=== PATIENT | female | born 1990 | race Caucasian/White ===

== ENCOUNTER 2018-03-31 21:59 | Inpatient (IN) ==
[~2018-03-31 21:59] MED LIST: Diphtheria/Tetanus/Pertussis Vaccine Inj 0.5 ML Syringe IM ONE; Measles/Mumps/Rubella Vaccine Inj 0.5 ML Vial SQ ONE
--- NOTE | 2018-03-31 22:23 | P.PN ---
Subjective Interval history: Patient presented to the [facility] at C/C/0 with SROM and was rapidly moved to a labor room. She commenced spontaneous maternal expulsive efforts. The head delivered spontaneously and atraumatically followed by spontaneous and atraumatic delivery of the anterior shoulder remainder of the . The was placed on the maternal abdomen and vigorous with stimulation. The was crying vigorously so cord clamp was delayed for 45 seconds at which time the had good overall tone and was moving all extremities vigorously before 1 minute of life. Cord blood was obtained for the nursery and the placenta delivered spontaneously. The placenta appeared to be bilobed vs a succenturiate lobe which delivered separately. EBL 150cc. Apgars were assigned 7 /9 although vigorous movement and tone were noted by MD on the delivery field. No lacerations were noted. Mother and are both doing well. Results - Labs CBC & Chem 7: 03/31/18 22:08
--- NOTE | 2018-03-31 22:23 | ED ---
History of Present Illness Primary Care Physician: NOT REQUIRED History of Present Illness: cc: contractions 27-year-old 003, IUP at 40.4 Pre-tyra care complicated by: Close spacing, insufficient care, no care since 11/04, recent move from [place], marijuana use The patient presents complaining of the onset of painful contractions approximately 2 hours prior to presenting. She reports that she had a large gush of clear fluid or possibly 30 minutes prior to arriving. She reports that since her contractions started 2 hours previous, they increased in intensity and frequency. There are no alleviating factors are attempted treatments. Patient denies any heavy vaginal bleeding although noted some bleeding that had started after the onset of her contractions. Patient reports good movement. Patient has no other obstetrical or gynecologic complaints. 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 This includes certification that hospital inpatient services are reasonable and necessary and in the case of services not specified as inpatient-only under 42 CFR 419.22(n), that they are appropriately provided as inpatient services in accordance to with the 2-midnight benchmark under 43 CFR 412.3(e) Review of Systems All other systems reviewed negative except as stated in HPI Medications and Allergies Allergies Allergy/AdvReac Type Severity Reaction Status Date / Time No Known Allergies Allergy Unverified 03/31/18 22:32 Home Medications Medication Instructions Recorded Confirmed Type Multi 1 tab DAILY 03/31/18 03/31/18 History Exam Narrative: GENERAL: Well-nourished, well-developed patient. SKIN: Warm and dry. HEAD: Normocephalic and atraumatic. EYES: No scleral icterus. No injection or drainage. ENT: No nasal drainage noted. Mucous membranes pink. Airway patent. NECK: Supple, trachea midline. No JVD. CARDIOVASCULAR: Regular rate and rhythm without murmurs, gallops, or rubs. RESPIRATORY: Breath sounds equal bilaterally. No accessory muscle use. BREASTS: Deferred ABDOMEN/GI: Abdomen soft, non-tender, bowel sounds present, no rebound, no guarding Gravid GENITOURINARY: External Genitalia: intact and normal in appearance. Normal egg bus. No cervical or vaginal masses noted. Grossly normal rugate, grossly ROM. SVE complete/complete/0, cephalic EXTREMITIES: No cyanosis or edema. BACK: Nontender without obvious deformity. No CVA tenderness. NEUROLOGICAL: Awake and alert. Motor and sensory grossly within normal limits. Five out of 5 muscle strength in all muscle groups. Normal speech. Grossly normal R OM. Psychiatric: Grossly normal memory/affect Assessment and Plan - Plan Assessment/plan: 1. IUP at 40.4 2. Active labor: We will admit for active labor and precipitous delivery 3. well-being: Unable to obtain heart tones prior to delivery 4. Marijuana use 5. Insufficient care: We will attempt to obtain records in the a.m., if unavailable then will draw labs 6. Close spacing Discharge Plan - Discharge Disposition Patient Disposition: 30 Still Patient - Physicians Team ED Provider: Lesli Reed Primary Care Provider: NOT REQUIRED,
--- NOTE | 2018-03-31 22:41 | P.HPOB ---
History of Present Illness Primary Care Physician: NOT REQUIRED History of Present Illness: History of Present Illness Primary Care Physician: NOT REQUIRED History of Present Illness: cc: contractions 27-year-old 003, IUP at 40.4 Pre-tyra care complicated by: Close spacing, insufficient care, no care since 11/04, recent move from [place], marijuana use The patient presents complaining of the onset of painful contractions approximately 2 hours prior to presenting. She reports that she had a large gush of clear fluid or possibly 30 minutes prior to arriving. She reports that since her contractions started 2 hours previous, they increased in intensity and frequency. There are no alleviating factors are attempted treatments. Patient denies any heavy vaginal bleeding although noted some bleeding that had started after the onset of her contractions. Patient reports good movement. Patient has no other obstetrical or gynecologic complaints. 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 This includes certification that hospital inpatient services are reasonable and necessary and in the case of services not specified as inpatient-only under 42 CFR 419.22(n), that they are appropriately provided as inpatient services in accordance to with the 2-midnight benchmark under 43 CFR 412.3(e) Review of Systems All other systems reviewed negative except as stated in HPI Medications and Allergies Allergies Allergy/AdvReac Type Severity Reaction Status Date / Time No Known Allergies Allergy Unverified 03/31/18 22:32 Home Medications Medication Instructions Recorded Confirmed Type Multi 1 tab DAILY 03/31/18 03/31/18 History Exam Narrative: GENERAL: Well-nourished, well-developed patient. SKIN: Warm and dry. HEAD: Normocephalic and atraumatic. EYES: No scleral icterus. No injection or drainage. ENT: No nasal drainage noted. Mucous membranes pink. Airway patent. NECK: Supple, trachea midline. No JVD. CARDIOVASCULAR: Regular rate and rhythm without murmurs, gallops, or rubs. RESPIRATORY: Breath sounds equal bilaterally. No accessory muscle use. BREASTS: Deferred ABDOMEN/GI: Abdomen soft, non-tender, bowel sounds present, no rebound, no guarding Gravid GENITOURINARY: External Genitalia: intact and normal in appearance. Normal egg bus. No cervical or vaginal masses noted. Grossly normal rugate, grossly ROM. SVE complete/complete/0, cephalic EXTREMITIES: No cyanosis or edema. BACK: Nontender without obvious deformity. No CVA tenderness. NEUROLOGICAL: Awake and alert. Motor and sensory grossly within normal limits. Five out of 5 muscle strength in all muscle groups. Normal speech. Grossly normal R OM. Psychiatric: Grossly normal memory/affect Assessment and Plan - Plan Assessment/plan: 1. IUP at 40.4 2. Active labor: We will admit for active labor and precipitous delivery 3. well-being: Unable to obtain heart tones prior to delivery 4. Marijuana use 5. Insufficient care: We will attempt to obtain records in the a.m., if unavailable then will draw labs 6. Close spacing Discharge Plan - Discharge Disposition Patient Disposition: 30 Still Patient - Physicians Team ED Provider: Lesli Reed Primary Care Provider: NOT REQUIRED, - Inpatient Certification I certify that the inpatient services were ordered in accordance with Medicare regulations governing the order. This includes certification that hospital inpatient services are reasonable and necessary and in the case of services not specified as inpatient-only under 42 CFR 419.22(n), that they are appropriately provided as inpatient services in accordance to with the 2-midnight benchmark under 43 CFR 412.3(e) Medications and Allergies Allergies Allergy/AdvReac Type Severity Reaction Status Date / Time No Known Allergies Allergy Unverified 03/31/18 22:32 Home Medications Medication Instructions Recorded Confirmed Type Multi 1 tab DAILY 03/31/18 03/31/18 History Exam Vital signs: Vital Signs 03/31/18 22:18 03/31/18 22:26 03/31/18 22:28 Temperature 97.7 F Pulse Rate 43 L Respiratory Rate 18 Blood Pressure 122/89 136/75 03/31/18 22:31 Temperature Pulse Rate 83 Respiratory Rate Blood Pressure 121/75 Intake & Output 03/31/18 03/31/18 04/01/18 06:59 18:59 06:59 Weight 61 kg Caprini VTE Risk Assessment Caprini VTE Risk Assessment: No/Low Risk (score <= 1) Caprini Risk Assessment Model: Point Value = 1 Point Value = 2 Point Value = 3 Point Value = 5 Age 41-60 Minor surgery BMI > 25 kg/m2 Swollen legs Varicose veins or History of unexplained or recurrent spontaneous Oral contraceptives or hormone replacement Sepsis (< 1 month) Serious lung disease, including pneumonia (< 1 month) Abnormal pulmonary function Acute myocardial infarction Congestive heart failure (< 1 month) History of inflammatory bowel disease Medical patient at bed rest Age 61-74 Arthroscopic surgery Major open surgery (> 45 min) Laparoscopic surgery (> 45 min) Malignancy Confined to bed (> 72 hours) Immobilizing plaster cast Central venous access Age >= 75 History of VTE Family history of VTE Factor V Leiden Prothrombin [id number] Lupus anticoagulant Anticardiolipin antibodies Elevated serum homocysteine Heparin-induced thrombocytopenia Other congenital or acquired thrombophilia Stroke (< 1 month) Elective arthroplasty Hip, pelvis, or leg fracture Acute spinal cord injury (< 1 month) Prophylaxis Regimen: Total Risk Factor Score Risk Level Prophylaxis Regimen 0-1 Low Early ambulation 2 Moderate Order ONE of the following: *Sequential Compression Device (SCD) *Heparin 5000 units SQ BID 3-4 Higher Order ONE of the following medications: *Heparin 5000 units SQ TID *Enoxaparin/Lovenox 40 mg SQ daily (WT < 150 kg, CrCl > 30 mL/min) *Enoxaparin/Lovenox 30 mg SQ daily (WT < 150 kg, CrCl > 10-29 mL/min) *Enoxaparin/Lovenox 30 mg SQ BID (WT < 150 kg, CrCl > 30 mL/min) AND/OR *Sequential Compression Device (SCD) 5 or more Highest Order ONE of the following medications: *Heparin 5000 units SQ TID (Preferred with Epidurals) *Enoxaparin/Lovenox 40 mg SQ daily (WT < 150 kg, CrCl > 30 mL/min) *Enoxaparin/Lovenox 30 mg SQ daily (WT < 150 kg, CrCl > 10-29 mL/min) *Enoxaparin/Lovenox 30 mg SQ BID (WT < 150 kg, CrCl > 30 mL/min) AND *Sequential Compression Device (SCD)
[2018-03-31] MEDS ORDERED: Benzocaine 20% Top Spray 60 ML Can TOPICAL PRN (22:52)
[2018-03-31] MEDS ORDERED: Witch Hazel 50%/Glyderin 12.5% 40 Pad Jar RECTAL PRN (22:52)
[2018-03-31] MEDS ORDERED: Naloxone Inj 0.4 MG/ML Vial IV.PUSH PRN (22:52)
[2018-03-31] MEDS ORDERED: Zolpidem Tartrate 5 MG Tablet PO PRN (22:52)
[2018-03-31] MEDS ORDERED: Bisacodyl 10 MG Supp RECTAL PRN (22:52)
--- NOTE | 2018-03-31 22:52 | P.OBDELI ---
Anesthesia: None Episiotomy: none Vaginal Delivery: Normal Presentation: Occiput anterior Nuchal Cord: None Delayed Cord Clamping (45 sec): Yes Placenta: Spontaneous delivery, Intact Laceration: None Estimated blood loss (mL): 150
[2018-03-31] MEDS ORDERED: Sodium Chlor 0.9% Inj 500 ML IV.SIG PRN (22:53)
[2018-03-31] MEDS ORDERED: fentaNYL Citrate Inj 100 MCG/2 ML Ampul IV.PUSH PRN ×2 (22:53)
[2018-03-31] MEDS ORDERED: Oxytocin 30 Units/500ml Premix 30 UNITS/500 ML BAG IV.SIG ONE (22:53)
[2018-03-31] MEDS ORDERED: Oxytocin 30 Units/500ml Premix 30 UNITS/500 ML BAG IV.CONT SCH (23:00)
[2018-03-31] MEDS ORDERED: Sod Chloride 0.9% Inj 1,000 ML IV.CONT PRN (23:00)
[2018-03-31 23:26] LABS: Baso % (Auto) 0.2 % (0.0-2.0); Eos % (Auto) 0.3 % (0.0-4.0); Hematocrit 33.9 % (35.0-46.0); Hemoglobin 11.5 gm/dL (11.6-15.3); Lymph # (Auto) 3.9 th/mm3 (1.0-4.8); Lymph % (Auto) 30.6 % (9.0-44.0); Mean Corpuscular Hemoglobin 31.3 pg (27.0-34.0); Mean Corpuscular Volume 92.2 fL (80.0-100.0); Mean Platelet Volume 10.7 fL (7.0-11.0); Mono # (Auto) 0.8 th/mm3 (0.0-0.9); Mono % (Auto) 5.9 % (0.0-8.0); Neut # (Auto) 8.1 th/mm3 (1.8-7.7); Platelet Count 194 th/mm3 (150-450); Red Blood Count 3.68 mil/mm3 (4.00-5.30); Red Cell Distribution Width 13.9 % (11.6-17.2); White Blood Count 12.8 th/mm3 (4.0-11.0)
[2018-04-01] MEDS: Acetaminophen 325 MG Tablet PO PRN ×2 (00:04→08:07)
[2018-04-01 01:10] LABS: Hepatitis A IgM Antibody Nonreactive (Nonreactive); Hepatitits B Surface Antigen Nonreactive (Nonreactive)
[2018-04-01 01:20] LABS: Benzodiazepine Urine With Conf Neg (Neg)
[2018-04-01 01:26] LABS: Amphetamine Urine With Conf Pos (Neg)
[2018-04-01] MEDS: Ferrous Sulfate 325 MG Tablet PO SCH (08:41)
[2018-04-01] MEDS: Senna/Docusate Sodium 8.6/50 MG Tablet PO SCH (08:42)
[2018-04-01] MEDS: Prenatal Vit/Ca/Iron/Folic Acid Tablet PO SCH (08:42)
[2018-04-01] MEDS ORDERED: PRENATAL MULTI PO SCH (09:00)
--- NOTE | 2018-04-01 11:13 | P.PNOB ---
Subjective Interval history: day # 1 AFVSS overnight. Decreased lochia. Denies dysuria. No breast tenderness. Appetite good. No nausea or vomiting. Positive flatus/bowel movement. Ambulating well. Denies calf pain or shortness of breath. Otherwise, she is doing well this morning and has no other complaints. Wishes to leave today due to having a 2 year old at home whom she needs to watch and cannot make other arrangements at this time. Objective Vital Signs/I&O: Vital Signs 03/31/18 22:18 03/31/18 22:26 03/31/18 22:28 Temperature 97.7 F Pulse Rate 43 L Respiratory Rate 18 Blood Pressure 122/89 136/75 03/31/18 22:31 03/31/18 22:45 03/31/18 22:46 Temperature Pulse Rate 83 53 L Respiratory Rate 18 Blood Pressure 121/75 136/84 03/31/18 23:16 03/31/18 23:35 03/31/18 23:46 Temperature Pulse Rate 43 L 43 L 41 L Respiratory Rate Blood Pressure 137/94 H 138/72 136/80 04/01/18 00:03 04/01/18 01:15 04/01/18 08:20 Temperature 97.9 F 97.9 F Pulse Rate 45 L 55 L 68 Respiratory Rate 18 20 16 Blood Pressure 116/83 116/66 108/73 Intake & Output 03/31/18 04/01/18 04/01/18 18:59 06:59 18:59 Weight 61 kg Result Diagrams: 03/31/18 22:08 Objective Remarks: GENERAL: Well-nourished, well-developed patient. CARDIOVASCULAR: Regular rate and rhythm without murmurs, gallops, or rubs. RESPIRATORY: Breath sounds equal bilaterally. No accessory muscle use. ABDOMEN/GI: Abdomen soft, non-tender. Fundus: Firm, non-tender at umbilicus. GENITOURINARY: Light to moderate bleeding. EXTREMITIES: No cyanosis or edema, non-tender, without signs of DVT. Medications and IVs: Active Medications Acetaminophen (Tylenol) 650 mg PO Q4H PRN PRN Reason: PAIN SCALE 1 TO 2 Last Admin: 04/01/18 08:07 Dose: 650 mg Al Hydroxide/Mg Hydroxide (Milk Of Magnesia Liq) 30 ml PO Q12H PRN PRN Reason: Mild Constipation Benzocaine (Americaine 20% [place]) 1 spray TOPICAL Q4H PRN PRN Reason: For Perineum Discomfort Bisacodyl (Dulcolax Supp) 10 mg RECTAL DAILY PRN PRN Reason: SEVERE CONSITIPATION Fentanyl Citrate (Fentanyl Inj) 50 mcg IV.PUSH Q1H PRN PRN Reason: Pain Scale 3 - 5 Fentanyl Citrate (Fentanyl Inj) 100 mcg IV.PUSH Q1H PRN PRN Reason: PAIN SCALE 6 TO 10 Ferrous Sulfate (Ferosul) 325 mg PO DAILY [facility] Last Admin: 04/01/18 08:41 Dose: Not Given Lactated Ringer's (Lr 1000 Ml Inj) 1,000 mls @ 125 mls/hr IV.CONT .Q8H [facility] Last Admin: 04/01/18 08:42 Dose: Not Given Lactated Ringer's (Lr 1000 Ml Inj) 1,000 mls @ 3,000 mls/hr IV.SIG UNSCH PRN PRN Reason: compromise or epidural Sodium Chloride (Ns Inj) 500 mls @ 1,000 mls/hr IV.SIG UNSCH PRN PRN Reason: SEE LABEL COMMENTS Sodium Chloride (Ns Inj) 1,000 mls @ 100 mls/hr IV.CONT .Q10H PRN PRN Reason: SEE LABEL COMMENTS Ibuprofen (Motrin) 800 mg PO Q8H PRN PRN Reason: CRAMPING Last Admin: 04/01/18 08:08 Dose: 800 mg Lactulose (Lactulose Liq) 30 ml PO DAILY PRN PRN Reason: SEVERE CONSITIPATION Lidocaine HCl (Xylocaine 1% Inj) 10 ml INFILTRATN PRN PRN PRN Reason: For episiotomy repair Stop: 04/02/18 22:52 Lidocaine HCl (Xylocaine 1% Inj) 0.1 ml I-DERMAL PRN PRN PRN Reason: For IV start Stop: 04/03/18 22:52 Mineral Oil (Muri-Lube Oil) 10 ml TOPICAL PRN PRN PRN Reason: PRN perineal massage Naloxone HCl (Narcan Inj) 0.1 mg IV.PUSH Q2M PRN PRN Reason: for opiate reversal Nicotine (Habitrol 14 Mg Patch.24 Hr) 1 patch T-DERMAL DAILY [facility] Last Admin: 04/01/18 09:13 Dose: 1 patch Ondansetron HCl (Zofran Odt) 4 mg PO Q6H PRN PRN Reason: NAUSEA OR VOMITING Ondansetron HCl (Zofran Inj) 4 mg IV.PUSH Q6H PRN PRN Reason: NAUSEA OR VOMITING Oxycodone/Acetaminophen (Percocet 5/325 Mg) 1 tab PO Q4H PRN PRN Reason: PAIN SCALE 3 TO 5 Oxycodone/Acetaminophen (Percocet 5/325 Mg) 2 tab PO Q4H PRN PRN Reason: PAIN SCALE 6 TO 10 Patch Removal (Remove Old Patch) 1 each T-DERMAL DAILY [facility] Vit/Calcium/Iron/Folic Ac (Stuartnatal Plus 3) 1 tab PO DAILY [facility] Last Admin: 04/01/18 08:42 Dose: Not Given Senna/Docusate Sodium (Estefania-Colace) 1 tab PO BID [facility] Last Admin: 04/01/18 08:42 Dose: Not Given Sennosides (Senokot) 17.2 mg PO Q12H PRN PRN Reason: Moderate Constipation Sodium Chloride (Ns Flush) 2 ml IV.FLUSH BID [facility] Last Admin: 04/01/18 08:41 Dose: Not Given Sodium Chloride (Ns Flush) 2 ml IV.FLUSH PRN PRN PRN Reason: FLUSH AFTER USING IV ACCESS Witch Clare/Glycerin (Tucks Pads) 1 applicatio RECTAL QID PRN PRN Reason: HEMORRHOIDS Zolpidem Tartrate (Ambien) 5 mg PO HS PRN PRN Reason: SLEEP Assessment and Plan - Plan 27 y/o female who is PPD# 1 s/p . -Will reassess later today to evaluate for discharge -Continue routine care. -Motrin PRN pain. -Encouraged OOB. Advised pelvic rest for 6 wks. -Re: ctrl, she would like to follow up with her outpatient OB for IUD placement. -D/c Possibly later today wdw Dr. Reed - Attending Attestation The patient was seen and examined by me and I participated in all laws decision making. Continue routine care. [facility]
[2018-04-02] MEDS: Senna/Docusate Sodium 8.6/50 MG Tablet PO SCH ×2 (00:33→09:32)
--- NOTE | 2018-04-02 08:38 | P.PNOB ---
Subjective Post day: 2 Interval history: day # 2 AFVSS overnight. Decreased lochia. Denies dysuria. No breast tenderness. Appetite good. No nausea or vomiting. Positive flatus/bowel movement. Ambulating well. Denies calf pain or shortness of breath. Otherwise, she is doing well this morning and has no other complaints. Objective Vital Signs/I&O: Vital Signs 04/01/18 20:50 Temperature 98.3 F Pulse Rate 55 L Respiratory Rate 18 Blood Pressure 99/62 L Result Diagrams: 03/31/18 22:08 Objective Remarks: GENERAL: Well-nourished, well-developed patient. CARDIOVASCULAR: Regular rate and rhythm without murmurs, gallops, or rubs. RESPIRATORY: Breath sounds equal bilaterally. No accessory muscle use. ABDOMEN/GI: Abdomen soft, non-tender. Fundus: Firm, non-tender at umbilicus. GENITOURINARY: Light to moderate bleeding. EXTREMITIES: No cyanosis or edema, non-tender, without signs of DVT. Medications and IVs: Active Medications Acetaminophen (Tylenol) 650 mg PO Q4H PRN PRN Reason: PAIN SCALE 1 TO 2 Last Admin: 04/01/18 08:07 Dose: 650 mg Al Hydroxide/Mg Hydroxide (Milk Of Nandini [place]) 30 ml PO Q12H PRN PRN Reason: Mild Constipation Benzocaine (Americaine 20% [place]) 1 spray TOPICAL Q4H PRN PRN Reason: For Perineum Discomfort Bisacodyl (Dulcolax Supp) 10 mg RECTAL DAILY PRN PRN Reason: SEVERE CONSITIPATION Fentanyl Citrate (Fentanyl Inj) 50 mcg IV.PUSH Q1H PRN PRN Reason: Pain Scale 3 - 5 Fentanyl Citrate (Fentanyl Inj) 100 mcg IV.PUSH Q1H PRN PRN Reason: PAIN SCALE 6 TO 10 Ferrous Sulfate (Ferosul) 325 mg PO DAILY [facility] Last Admin: 04/01/18 08:41 Dose: Not Given Lactated Ringer's (Lr 1000 Ml Inj) 1,000 mls @ 125 mls/hr IV.CONT .Q8H [facility] Last Admin: 04/02/18 07:24 Dose: Not Given Lactated Ringer's (Lr 1000 Ml Inj) 1,000 mls @ 3,000 mls/hr IV.SIG UNSCH PRN PRN Reason: compromise or epidural Sodium Chloride (Ns Inj) 500 mls @ 1,000 mls/hr IV.SIG UNSCH PRN PRN Reason: SEE LABEL COMMENTS Sodium Chloride (Ns Inj) 1,000 mls @ 100 mls/hr IV.CONT .Q10H PRN PRN Reason: SEE LABEL COMMENTS Ibuprofen (Motrin) 800 mg PO Q8H PRN PRN Reason: CRAMPING Last Admin: 04/02/18 00:31 Dose: 800 mg Lactulose (Lactulose Liq) 30 ml PO DAILY PRN PRN Reason: SEVERE CONSITIPATION Lidocaine HCl (Xylocaine 1% Inj) 10 ml INFILTRATN PRN PRN PRN Reason: For episiotomy repair Stop: 04/02/18 22:52 Lidocaine HCl (Xylocaine 1% Inj) 0.1 ml I-DERMAL PRN PRN PRN Reason: For IV start Stop: 04/03/18 22:52 Mineral Oil (Muri-Lube Oil) 10 ml TOPICAL PRN PRN PRN Reason: PRN perineal massage Naloxone HCl (Narcan Inj) 0.1 mg IV.PUSH Q2M PRN PRN Reason: for opiate reversal Nicotine (Habitrol 14 Mg Patch.24 Hr) 1 patch T-DERMAL DAILY [facility] Last Admin: 04/01/18 09:13 Dose: 1 patch Ondansetron HCl (Zofran Odt) 4 mg PO Q6H PRN PRN Reason: NAUSEA OR VOMITING Ondansetron HCl (Zofran Inj) 4 mg IV.PUSH Q6H PRN PRN Reason: NAUSEA OR VOMITING Oxycodone/Acetaminophen (Percocet 5/325 Mg) 1 tab PO Q4H PRN PRN Reason: PAIN SCALE 3 TO 5 Last Admin: 04/02/18 00:32 Dose: 1 tab Oxycodone/Acetaminophen (Percocet 5/325 Mg) 2 tab PO Q4H PRN PRN Reason: PAIN SCALE 6 TO 10 Last Admin: 04/01/18 16:19 Dose: 2 tab Patch Removal (Remove Old Patch) 1 each T-DERMAL DAILY [facility] Last Admin: 04/01/18 17:28 Dose: 1 each Vit/Calcium/Iron/Folic Ac (Stuartnatal Plus 3) 1 tab PO DAILY [facility] Last Admin: 04/01/18 08:42 Dose: Not Given Senna/Docusate Sodium (Estefania-Colace) 1 tab PO BID [facility] Last Admin: 04/02/18 00:33 Dose: Not Given Sennosides (Senokot) 17.2 mg PO Q12H PRN PRN Reason: Moderate Constipation Sodium Chloride (Ns Flush) 2 ml IV.FLUSH BID [facility] Last Admin: 04/02/18 00:30 Dose: Not Given Sodium Chloride (Ns Flush) 2 ml IV.FLUSH PRN PRN PRN Reason: FLUSH AFTER USING IV ACCESS Witch Clare/Glycerin (Tucks Pads) 1 applicatio RECTAL QID PRN PRN Reason: HEMORRHOIDS Zolpidem Tartrate (Ambien) 5 mg PO HS PRN PRN Reason: SLEEP Assessment and Plan - Plan 27 y/o female who is PPD# 2 s/p . -Continue routine care. -Motrin PRN pain. -Encouraged OOB. Advised pelvic rest for 6 wks. -Re: ctrl, she would like to follow up with her outpatient OB for IUD placement. -D/c Possibly later today wdw Dr. Casper
[2018-04-02 09:31] VITALS: BP 108/64; PULSE 68; RESP 16; TEMP 97.9
[2018-04-02] MEDS: Prenatal Vit/Ca/Iron/Folic Acid Tablet PO SCH (09:32)
[2018-04-02] MEDS: Ferrous Sulfate 325 MG Tablet PO SCH (09:32)
== END 2018-04-02 17:10 | disposition home or self-care (01) ==
LOC: HOBED 21:59 → H2E 22:03 → H1EA 04-01 00:54
PROVIDERS: ADMIT Obstetrics & Gynecology; ATTEND Obstetrics & Gynecology